=== PATIENT | female | born 1995 | race Caucasian/White ===

== ENCOUNTER 2019-08-26 15:16 | Emergency (ER) | payer OTHER, SELFPAY ==
[~2019-08-26] VITALS: Ht 160 cm; Wt 53.1 kg
[2019-08-26 15:16] VITALS: BP 125/76
--- NOTE | 2019-08-26 15:18 | NUR ---
AMBULATED TO BED 7
--- NOTE | 2019-08-26 15:32 | NUR ---
24 Y/O F C/C VOMITING/DIARRHEA X THIS MORNING. PER PT UNABLE TO DRINK/EAT/TOLERATE ANYTHING. PT TAKEN ANTIEMETICS WITH NO RELIEF. VOMITING EPISODES X 10 ; DIARRHEA X 5. PT A/OX4; AMBULATED; SKIN COOL TO TOUCH. BS HYPERACTIVE. PT NKA. NO HX. NO RX. SIDE RAIL X1.
[2019-08-26] MEDS ORDERED: ONDANSETRON 4 MG/2 ML VIAL ONE (15:35)
[2019-08-26] MEDS ORDERED: ALUMINUM HYD/MAG/SIMETHICONE 30 ML, DICYCLOMINE HCL LIQUID 20 MG, LIDOCAINE VISCOUS 2% ... PO ONE ×3 (15:35)
[2019-08-26] MEDS ORDERED: ONDANSETRON 4 MG/2 ML VIAL IVP ONE (15:35)
[2019-08-26] MEDS ORDERED: NACL 0.9% 1,000 ML IV SCH (15:35)
[2019-08-26] MEDS ORDERED: DICYCLOMINE HCL LIQUID 10 MG/5 ML UDC ONE (15:43)
[2019-08-26] MEDS ORDERED: ALUMINUM HYD/MAG/SIMETHICONE 30 ML UDC ONE (15:43)
[2019-08-26] MEDS ORDERED: LIDOCAINE VISCOUS 2% 20 ML UDC ONE (15:43)
[2019-08-26 15:53] LABS: BASOPHILS # (AUTO) 0.1 K/uL (0.00-0.22); BASOPHILS % (AUTO) 0.5 % (0.0-2.0); EOSINOPHILS # (AUTO) 0.1 K/uL (0-0.4); EOSINOPHILS % (AUTO) 0.7 % (0.0-4.0); HEMATOCRIT 41.2 % (36-48); HEMOGLOBIN 13.9 g/dL (12.0-16.0); LYMPHOCYTES # (AUTO) 2.8 K/uL (2.5-16.5); LYMPHOCYTES % (AUTO) 28.5 % (20.5-51.1); MEAN CORPUSCULAR HEMOGLOBIN 30 pg (27-31); MEAN CORPUSCULAR HGB CONC 34 g/dL (33-37); MEAN CORPUSCULAR VOLUME 90.4 fL (80-94); MONOCYTES # (AUTO) 0.6 K/uL (0.8-1.0); MONOCYTES % (AUTO) 5.9 % (1.7-9.3); NEUTROPHILS # (AUTO) 6.3 K/uL (1.8-7.7); NEUTROPHILS % (AUTO) 64.4 % (42.2-75.2); PLATELET COUNT (AUTO) 263 K/uL (140-450); RED BLOOD CELL COUNT(AUTO) 4.55 MIL/uL (4.20-5.40); RED CELL DISTRIBUTION WIDTH 13.3 % (11.6-13.7); WHITE BLOOD COUNT (AUTO) 9.8 K/uL (4.8-10.8)
[2019-08-26] MEDS ORDERED: PROCHLORPERAZINE 10 MG/2 ML VIAL IVP ONE (16:05)
[2019-08-26 16:31] LABS: ALBUMIN 4.3 g/dL (3.4-5.0); CARBON DIOXIDE 22.5 mmol/L (21-32); CREATININE 1.1 mg/dL (0.6-1.3); POTASSIUM 3.5 mmol/L (3.5-5.1); TOTAL BILIRUBIN 0.6 mg/dL (0.0-1.0)
--- NOTE | 2019-08-26 17:30 | NUR ---
IV removed, catheter intact and site benign. Applied folded 4x4 gauze and tape to stop bleeding.
[2019-08-26 17:49] VITALS: BP 118/80
--- NOTE | 2019-08-26 17:50 | NUR ---
Patient discharged with v/s stable. Written and verbal after care instructions given and explained. Patient alert, oriented and verbalized understanding of instructions. Ambulatory with steady gait. All questions addressed prior to discharge. ID band removed. Patient advised to follow up with PMD. Rx of Phenergan and Pepcid 20mg given. Patient educated on indication of medication including possible reaction and side effects. Opportunity to ask questions provided and answered.
== END 2019-08-26 17:50 | disposition home or self-care (01) ==
LOC: EEVIPCON 15:16 → MED 15:16
DX: K52.9 Noninfective gastroenteritis and colitis, unspecified (principal); Z20.828 Contact with and (suspected) exposure to other viral communicable diseases
CPT/HCPCS: 36415; 80053; 81002; 81025; 82150; 83690; 85025; 87635; 96361; 96374; 96375; 99284; J0780; J2405; J7030

== ENCOUNTER 2020-02-10 17:08 | Emergency (ER) | payer OTHER, SELFPAY ==
[~2020-02-10] VITALS: Ht 160 cm; Wt 56.3 kg
[2020-02-10 17:09] VITALS: BP 119/76
--- NOTE | 2020-02-10 17:15 | NUR ---
SWABS COLLECTED AND SENT TO LAB.
--- NOTE | 2020-02-10 17:20 | NUR ---
24/F C/O SORE THROAT STARTING TODAY WITH GENERALIZED WEAKNESS. PT WORKS AROUND COVID PATIENT'S ALL SHIFTS AT WORK. DENIES FEVER OR CHILLS. HX DENIES.
[2020-02-10 17:31] VITALS: BP 119/76
--- NOTE | 2020-02-10 17:31 | NUR ---
Patient discharged with v/s stable. Written and verbal after care instructions given and explained. Patient verbalized understanding. Ambulatory with steady gait. All questions addressed prior to discharge. Advised to follow up with PMD.
== END 2020-02-10 17:31 | disposition home or self-care (01) ==
LOC: MED 17:08
DX: J02.9 Acute pharyngitis, unspecified (principal); Z20.828 Contact with and (suspected) exposure to other viral communicable diseases; Z90.89 Acquired absence of other organs
CPT/HCPCS: 87426; 99283; U0003

== ENCOUNTER 2023-09-12 17:05 | Emergency (ER) | payer OTHER ==
[~2023-09-12] VITALS: Ht 162.6 cm; Wt 60.8 kg
[2023-09-12 17:07] VITALS: BP 143/83; PULSE 117; RESP 16; TEMP 97.7; O2SAT 99
[2023-09-12] MEDS: ONDANSETRON 4 MG/2 ML VIAL IVP ONE ×2 (17:58→19:53)
[2023-09-12] MEDS: diphenhydrAMINE 50 MG/ML VIAL IVP ONE ×2 (18:00→19:57)
[2023-09-12] MEDS: NACL 0.9% 1,000 ML IV SCH (18:00)
[2023-09-12] MEDS: KETOROLAC 30 MG/ML VIAL IVP ONE (18:05)
[2023-09-12] MEDS: METOCLOPRAMIDE 10 MG/2 ML INJ VIAL IVP ONE (18:06)
[2023-09-12 18:18] LABS: BASOPHILS % (AUTO) 0.4 % (0.0-2.0); EOSINOPHILS # (AUTO) 0.1 K/uL (0-0.4); EOSINOPHILS % (AUTO) 0.8 % (0.0-4.0); HEMATOCRIT 38.4 % (36-48); HEMOGLOBIN 13.5 g/dL (12.0-16.0); LYMPHOCYTES # (AUTO) 2.9 K/uL (2.5-16.5); LYMPHOCYTES % (AUTO) 29.8 % (20.5-51.1); MEAN CORPUSCULAR HEMOGLOBIN 31 pg (27-31); MEAN CORPUSCULAR HGB CONC 35 g/dL (33-37); MEAN CORPUSCULAR VOLUME 88.5 fL (80-94); MONOCYTES # (AUTO) 0.6 K/uL (0.8-1.0); NEUTROPHILS # (AUTO) 6.1 K/uL (1.8-7.7); PLATELET COUNT (AUTO) 261 K/uL (140-450); RED BLOOD CELL COUNT(AUTO) 4.34 MIL/uL (4.20-5.40); RED CELL DISTRIBUTION WIDTH 13.2 % (11.6-13.7); WHITE BLOOD COUNT (AUTO) 9.7 K/uL (4.8-10.8)
[2023-09-12 18:26] LABS: APPEARANCE,URINE CLEAR (CLEAR); BILIRUBIN,URINE NEGATIVE (NEGATIVE); BLOOD, URINE NEGATIVE (NEGATIVE); COLOR,URINE YELLOW (YELLOW); LEUKOCYTE ESTERASE ,URINE TRACE (NEGATIVE); NITRITE, URINE NEGATIVE (NEGATIVE); PROTEIN,URINE NEGATIVE (NEGATIVE); UGLUCOSE NEGATIVE (NEGATIVE); UROBILINOGEN,URINE 0.2 EU/dL (0.2 - 1)
[2023-09-12 18:34] LABS: ANION GAP 15.5 (8-16); CALCIUM 9.3 mg/dL (8.5-10.1); CARBON DIOXIDE 25.9 mmol/L (21-32); CREATININE 0.9 mg/dL (0.6-1.3); POTASSIUM 3.4 mmol/L (3.5-5.1)
[2023-09-12 18:42] LABS: ALANINE AMINOTRANSFERASE 24 U/L (12-78); ALBUMIN 4.3 g/dL (3.4-5.0); ALKALINE PHOSPHATASE 78 U/L (50-136); ASPARTATE AMINOTRANSFERASE 24 U/L (15-37); BILIRUBIN,DIRECT 0.1 mg/dL (0.0-0.3); LIPASE 72 U/L (16-77); TOTAL BILIRUBIN 0.5 mg/dL (0.0-1.0); TOTAL PROTEIN, SERUM 7.4 g/dL (6.4-8.2)
[2023-09-12 18:52] LABS: LACTIC ACID 0.9 mmol/L (0.4-2.0)
[2023-09-12 19:29] VITALS: O2SAT 99
[2023-09-12 19:34] VITALS: BP 110/73; PULSE 114; RESP 25; TEMP 97.7; O2SAT 99
[2023-09-12] MEDS: NACL 0.9% 1,000 ML IV ONE (19:53)
[2023-09-12] MEDS ORDERED: cefTRIAXone 1,000 MG VIAL ONE (20:21)
[2023-09-12] MEDS ORDERED: SULF-59 PO (20:26)
[2023-09-12] MEDS ORDERED: ACET-8905 PO (20:26)
== END 2023-09-12 20:32 | disposition home or self-care (01) ==
LOC: MED 17:05
DX: R11.2 Nausea with vomiting, unspecified (principal); R10.31 Right lower quadrant pain; Z79.899 Other long term (current) drug therapy
CPT/HCPCS: 36415; 74177; 76856; 80048; 80076; 81003; 81025; 83605; 83690; 83880; 84484; 85025; 87040; 87086; 93005; 93976; 96361; 96374; 96375; 96376; 99285; J0696; J1200; J1885; J2405; J2765; J7030; Q0092; Q9967